=== PATIENT | male | born 1950 | race Caucasian/White ===

== ENCOUNTER 2018-11-18 23:22 | Emergency (ER) | payer SELFPAY ==
[~2018-11-18] VITALS: Ht 180.3 cm; Wt 120.2 kg
[2018-11-18] MEDS ORDERED: ELIQUIS2.5 MG PO (23:46)
[2018-11-18] MEDS ORDERED: METFORMIN HCL500 M1 ORAL (23:46)
--- NOTE | 2018-11-18 23:48 | NUR ---
ED Nurse Note: pt wheeled in c/o pain on bilateral lower extremity and swelling x 10 days.
[2018-11-18 23:52] VITALS: BP 148/84
--- NOTE | 2018-11-18 23:56 | NUR ---
ED Nurse Note: SAMY HU AT BEDSIDE
[2018-11-19] MEDS ORDERED: HYDROmorphone 1mg/ml Carpuject IM ONE (00:30)
[2018-11-19] MEDS ORDERED: HYDROCODON-ACE1 EA15 ORAL (00:34)
--- NOTE | 2018-11-19 00:34 | Emergency Room Report ---
History of Present Illness General Chief Complaint: Edema Source: Patient Present Illness HPI This is a 68-year-old male who is morbidly obese with chronic lymphedema and wheelchair-bound. He presents with chief complaint of left leg pain. His been ongoing for a week and a half. He was at [facility] in [place] this week. He was admitted there and just discharged this morning. He was put on Elliquis for DVT and Keflex for possible cellulitis. He did not get any pain medication. He said his pain is from the knee down to the ankle. There is swelling. Pain is 10 out of 10. Nothing made it better. Nothing made it worse. Denies any other complaint. Denies any trauma. Allergies: Coded Allergies: IBUPROFEN (Verified Allergy, Unknown, 11/18/18) IODINE (Verified Allergy, Unknown, 11/18/18) KETOROLAC (Verified Allergy, Unknown, 11/18/18) TRAMADOL (Verified Allergy, Unknown, 11/18/18) Uncoded Allergies: PENICILLIN (Allergy, Unknown, 11/18/18) Patient History Past Medical History: see triage record, old chart reviewed Past Surgical History: other Pertinent Family History: none Social History: Denies: smoking Immunizations: other Reviewed Nursing Documentation: PMH: Agreed; PSxH: Agreed Nursing Documentation-PMH Hx Diabetes: Yes Review of Systems Eye: Denies: eye pain, blurred vision ENT: Denies: ear pain, nose congestion, throat swelling Respiratory: Denies: cough, shortness of breath Cardiovascular: Denies: chest pain, palpitations Gastrointestinal: Denies: abdominal pain, diarrhea, nausea, vomiting Musculoskeletal: Reports: muscle pain; Denies: back pain, joint pain Skin: Denies: rash Neurological: Denies: headache, numbness Endocrine: Denies: increased thirst, increased urine Hematologic/Lymphatic: Denies: easy bruising All Other Systems: negative except mentioned in HPI Physical Exam Vital Signs Date Time Temp Pulse Resp B/P (MAP) Pulse Ox O2 Delivery O2 Flow Rate FiO2 11/18/18 23:41 98.2 110 16 148/84 94 Room Air vitals with tachycardia Sp02 EP Interpretation: reviewed, normal General Appearance: well appearing, no apparent distress, alert, obese Head: normocephalic, atraumatic Eyes: bilateral eye PERRL, bilateral eye EOMI ENT: hearing grossly normal, normal pharynx Neck: full range of motion, supple, no meningismus Respiratory: chest non-tender, lungs clear, normal breath sounds Cardiovascular #1: regular rate, rhythm, no murmur Gastrointestinal: normal bowel sounds, non tender, no mass, no organomegaly, no bruit, non-distended Musculoskeletal: back normal, normal range of motion, other - Left lower leg with lymphedema and tenderness. No crepitance. Normal warmth. Psychiatric: mood/affect normal Skin: warm/dry Medical Decision Making Diagnostic Impression: Primary Impression: DVT (deep venous thrombosis) Qualified Codes: I82.4Z2 - Acute embolism and thrombosis of unspecified deep veins of left distal lower extremity Additional Impression: Pain of lower leg Qualified Codes: M79.662 - Pain in left lower leg ER Course Patient presents with pain in the left lower leg. He was just diagnosed with DVT is on anticoagulation already. He is taking Keflex for possible cellulitis. I see no further workup other than treating his pain. We'll discharge home Last Vital Signs Date Time Temp Pulse Resp B/P (MAP) Pulse Ox O2 Delivery O2 Flow Rate FiO2 11/18/18 23:52 110 16 Room Air 11/18/18 23:52 98.2 148/84 94 Status: improved Disposition: HOME, SELF-CARE Condition: Stable Scripts Hydrocodone/Acetaminophen 5-325* (HYDROCODONE/ACETAMINOPHEN 5-325*) 1 Each Tablet 1 TAB ORAL Q6H PRN for For Pain, #15 TAB 0 Refills Prov: Maurice Wright MD 11/19/18 Additional Instructions: Continue with your medication for DVT and cellulitis. Follow-up with your DrSigifredo in a week. Return if worse. Maurice Wright MD Nov 19, 2018 00:34
--- NOTE | 2018-11-19 00:50 | NUR ---
ER DISCHARGE NOTE: Patient is cleared to be discharged per ERMD, pt is aox4, on room air, with stable vital signs. pt was given dc and prescription instructions, pt was able to verbalize understanding, pt id band removed. pt is able to ambulate with steady gait. pt took all belongings. pt carmen mcgowan at bedside assisting pt
== END 2018-11-19 00:50 | disposition home or self-care (01) ==
LOC: EMR 23:59
DX: I82.4Z2 Acute embolism and thrombosis of unspecified deep veins of left distal lower extremity (principal); M79.662 Pain in left lower leg; E66.01 Morbid (severe) obesity due to excess calories; Z68.37 Body mass index [BMI] 37.0-37.9, adult; Z88.0 Allergy status to penicillin; Z88.6 Allergy status to analgesic agent; Z91.041 Radiographic dye allergy status; E11.9 Type 2 diabetes mellitus without complications; I89.0 Lymphedema, not elsewhere classified; Z79.01 Long term (current) use of anticoagulants; Z99.3 Dependence on wheelchair
CPT/HCPCS: 96372; 99283; J1170